=== PATIENT | male | born 1970 | race Hispanic/Latino ===

== ENCOUNTER 2020-03-22 15:50 | Emergency (ER) | payer OTHER ==
[2020-03-22 16:15] VITALS: BP 145/99
--- NOTE | 2020-03-22 17:54 | Emergency Department Report ---
Chief Complaint: Skin/Abscess/Foreign Body Stated Complaint: LEG INJURY LT Time Seen by Provider: 03/22/20 18:06 - HPI History of Present Illness: 49-year-old male with a history of diabetes presents the ED complaining left anterior abrasions which [place] Patient notes that the area is red and painful. He denies fever/chills/nausea vomiting/abdominal pain/swelling to the area. - ROS Review of Systems: As noted in HPI - Exam Vital Signs: Vital Signs 03/22/20 16:13 Temperature 98.2 F Pulse Rate 102 H Respiratory 18 Rate Blood Pressure 145/99 O2 Sat by Pulse 96 Oximetry Physical Exam: GENERAL: Alert and oriented x3, no apparent distress, Normal Gait, atraumatic. HEAD: Head is normocephalic and a-traumatic. SKIN: Abrasions noted to the anterior left leg, mild erythema around abrasions, nonbleeding, no pus drainage warm and dry, No ulceration or induration present. MSE screening note: Focused history and physical exam performed. Due to findings the following was ordered: ED Disposition for MSE Clinical Impression: Abrasion, leg without infection Disposition: DC-01 TO HOME OR SELFCARE Is pt being admited?: No Does the pt Need Aspirin: No Condition: Stable Instructions: Abrasion (ED), Cellulitis (ED) Additional Instructions: Make sure to follow up with the primary care physician as discussed. Take all your medications as you've been prescribed. If you have any worsening symptoms or develop new symptoms please return to ED immediately. Referrals: PRIMARY CARE, [Primary Care Provider] - 3-5 Days [facility] [Outside] - 3-5 Days Forms: Work/School Release Form(ED) Time of Disposition: 18:12 ( )
== END 2020-03-22 18:10 | disposition home or self-care (01) ==
LOC: ED 15:50
DX: S80.812A Abrasion, left lower leg, initial encounter (principal); X50.9XXA Other and unspecified overexertion or strenuous movements or postures, initial encounter; Y93.89 Activity, other specified; Y92.89 Other specified places as the place of occurrence of the external cause; Y99.8 Other external cause status
CPT/HCPCS: 99282